=== PATIENT | female | born 1950 | race Caucasian/White ===

== ENCOUNTER 2025-07-25 10:33 | Outpatient (AMB) | payer OTHER, SELFPAY ==
--- NOTE | 2025-07-25 10:46 | A.OFFPC_ITS ---
Vital Signs 07/25/25 10:48 Height 5 ft 1.42 in Weight 178 lb 8 oz BMI 33.3 BP 134/64 Blood Pressure Location Rt brachial Position Sitting Respiration 14 Pulse 87 Pulse Source Pulse Oximeter Temp 98.1 F Temp Source Oral Pulse Oximetry (%) 98 Oxygen Delivery Method Room Air Intake Visit Reasons: Est. Care cholesterol, hypertension Intake Note: New patient visit Allergies No Known Allergies Allergy (Verified 07/25/25 10:49) Tobacco use date assessed: 07/25/25 Dental Screening Dental Screen Date: 07/25/25 Did you have a dental problem in the last 6 months where you did not have access to dental care?: No Was dental information given to patient?: Patient has dentist HPI HPI Comments History of Present Illness Details 75 year old hypertension, hyperlipidemia , osteoporosis, insomnia, obesi ty presenting to [facility] CV: On amlodipine, losartan, rosuvasatin. Blood pressure is well controlled. LE swelling intermittently, usually after salty foods. She has a history of heart murmur. No chest pain. BMI is 33.3. Difficulty losing weight. Would like to potentially try a GLP 1 agonist. BH: Insomnia. Goes to bed about 10 wakes up at 3 does not go back to sleep. Has tried ambien in the past. Only lasts 4 hours. Osteoporosis-DXA 2023. Eye exam and dental are up to date Mammo: 06/2025-Mammogram Colonoscopy: due in 2025-[facility] Tdap 01/2023 Pneumo 20 02/16/2023 ROS See HPI PHYSICAL EXAM: GENERAL: Alert and oriented x 3. NAD EYES: EOMI. Anicteric. HENT: Moist mucous membranes. No scleral icterus. No cervical lymphadenopathy. LUNGS: Clear to auscultation bilaterally. CARDIOVASCULAR: Regular rate and rhythm. soft systolic murmur. No JVD. ABDOMEN: Soft, non-tender +bs EXTREMITIES: Trace b/l edema. Non-tender. SKIN: No rashes or lesions. Warm. NEUROLOGIC: No focal neurological deficits. CN II-XII grossly intact PSYCHIATRIC: Cooperative. Appropriate mood and affect [facility] Surgical History H/O section Family History Father Alcoholism Mother HTN (hypertension) Diabetes Other Substance abuse Social History Alcohol intake: current Patient Tobacco Use Status: Former Tobacco user Cigarette Packs Per Day: 1 Years Smoked: 40 Questionnaire PHQ-9 Over the last 2 weeks, how often have you been bothered by any of the following problems? 1. Little interest or pleasure in doing things: not at all 2. Feeling down, depressed, or hopeless: not at all 3. Trouble falling or staying asleep, or sleeping too much: several days 4. Feeling tired or having little energy: not at all 5. Poor appetite or overeating: not at all 6. Feeling bad about yourself - or that you are a failure or have let yourself or your family down: not at all 7. Trouble concentrating on things, such as reading the newspaper or watching television: not at all 8. Moving or speaking so slowly that other people could have noticed. Or the opposite - being so fidgety or restless that you have been moving around a lot more than usual: not at all 9. Thoughts that you would be better off or of hurting yourself in some way: not at all Total score: 1 Depression Screening Interpretation: Negative Depression Screening Done: Yes 23656 - PHQ-9 Billing: Yes Source: Developed by Drs. Kishor Miller, Latonya Murphy, Frederick Sullivan and colleagues, with an educational juan r from [employer]. Thrive Questionnaire Date Thrive assessed: 07/25/25 I am a: Patient What is your living situation today?: I have a steady place to live Within the past 12 months, did the food you bought not last and you didn't have the money to get more?: Never true Within the past 12 months, did you worry whether your food would run out before you got money to buy more?: Never true Do you have trouble paying for medicines?: No Do you have trouble getting transportation to medical appointments?: No Do you have trouble paying your heating and electricity bill?: No Do you have trouble taking care of your child, family member or friend?: No Do you have trouble with day-to-day activities such as bathing, preparing meals, shopping, managing finances, etc.?: No Are you currently unemployed and looking for a job?: No Are you interested in more education?: No Please select the resources that you would like help with: None Currently or been in a relationship where the following occur: No concerns reported THRIVE Score: 0 AUDIT C Alcohol Use Questionnaire (AUDIT-C) 1. How often do you have a drink containing alcohol?: 2-3 times a week 2. How many drinks containing alcohol do you have on a typical day when you are drinking?: 1 or 2 3. How often do you have six or more drinks on one occasion?: Never Total Score: 3 ALEXX-7 AMB Questionnaire ALEXX-7 Date ALEXX - 7 assessed: 07/25/25 Feeling nervous, anxious, or on edge: 0 = Not at all Not being able to stop or control worryin = Not at all Worrying too much about different things: 0 = Not at all Trouble relaxin = Not at all Being so restless that it is hard to sit still: 0 = Not at all Becoming easily annoyed or irritable: 0 = Not at all Feeling afraid as if something awful might happen: 0 = Not at all Total ALEXX-7 score (0-4 normal; 5-9 mild; 10-14 moderate; 15-21 severe): 0 Source: Developed by Drs. Kishor Miller, Latonya Murphy, Frederick neal nd colleagues, with an educational juan r from [employer]. ALEXX-7 Assessment Billing ALEXX-7 Assessment Tool: ALEXX-7 Assessment 99958 Physical exam (Primary Care) Vital Signs: Last Vital Signs Temp 98.1 F 07/25/25 10:48 Pulse 87 07/25/25 10:48 Resp 14 07/25/25 10:48 BP 134/64 07/25/25 10:48 Pulse Ox 98 07/25/25 10:48 Oxygen Delivery Method Room Air 07/25/25 10:48 BMI result Body Mass Index 33.3 Tobacco/Smoking Status: Tobacco use Status Tobacco use date assessed 07/25/25 07/25/25 10:54 Patient Tobacco Use Status Former Tobacco user 07/25/25 10:54 PHQ-9: PHQ-9 Score PHQ-9: Total score 1 07/25/25 10:48 Depression Screening Interpretation: Negative Currently or been in a relationship where the following occur: No concerns reported Coding Level of Care Code Complex visit Add On G2211 Diagnoses Primary hypertension I10 Hypertension type: primary hypertension Hyperlipidemia, unspecified hyperlipidemia type E78.5 Hyperlipidemia type: unspecified Osteoporosis, unspecified osteoporosis type, unspecified pathological fracture presence M81.0 Osteoporosis type: unspecified Presence of current pathological fracture: unspecified Obesity (BMI 30.0-34.9) E66.811 Additional Codes ALEXX-7 Assessment Billing - ALEXX-7 Assessment Tool: ALEXX-7 Assessment 68149 ([id number]) PHQ-9 - 68189 - PHQ-9 Billing: Yes ([id number]) Assessment & Plan Assessment & Plan (1) Hypertension: Code(s): I10 - Essential (primary) hypertension Category: Medical Qualifiers: Hypertension type: primary hypertension Qualified Code(s): I10 - Essential (primary) hypertension (2) Hyperlipidemia: Code(s): E78.5 - Hyperlipidemia, unspecified Category: Medical Qualifiers: Hyperlipidemia type: unspecified Qualified Code(s): E78.5 - Hyperlipidemia, unspecified (3) Osteoporosis: Code(s): M81.0 - Age-related osteoporosis without current pathological fracture Category: Medical Qualifiers: Osteoporosis type: unspecified Presence of current pathological fracture: unspecified Qualified Code(s): M81.0 - Age-related osteoporosis without current pathological fracture (4) Obesity (BMI 30.0-34.9): Code(s): E66.811 - Obesity, class 1 Category: Medical Plan 75 year old to establish care Past medical, surgical, social reviewed CV: htn controlled. labs today. furosemide prn. echo if sob, worsening edema Obesity-GLP ordered. if not covered will use wegovy coupon Orders: Orders Complete Blood Count Auto Diff Today E78.5 - Hyperlipidemia, unspecified, I10 - Essential (primary) hypertension, K63.5 - Polyp of colon, M81.0 - Age-related osteoporosis without current pathological fracture, R35.89 - Other polyuria, R53.83 - Other fatigue, Z13.228 - Encounter for screening for other metabolic disorders Comprehensive Met. Panel Today E78.5 - Hyperlipidemia, unspecified, I10 - Essential (primary) hypertension, K63.5 - Polyp of colon, M81.0 - Age-related osteoporosis without current pathological fracture, R35.89 - Other polyuria, R53.83 - Other fatigue, Z13.228 - Encounter for screening for other metabolic disorders Lipid Panel Today E78.5 - Hyperlipidemia, unspecified, I10 - Essential (primary) hypertension, K63.5 - Polyp of colon, M81.0 - Age-related osteoporosis without current pathological fracture, R35.89 - Other polyuria, R53.83 - Other fatigue, Z13.228 - Encounter for screening for other metabolic disorders Vitamin B12 and Folate Today E78.5 - Hyperlipidemia, unspecified, I10 - Essential (primary) hypertension, K63.5 - Polyp of colon, M81.0 - Age-related osteoporosis without current pathological fracture, R35.89 - Other polyuria, R53.83 - Other fatigue, Z13.228 - Encounter for screening for other metabolic disorders TSH reflex Free T4 Today E78.5 - Hyperlipidemia, unspecified, I10 - Essential (primary) hypertension, K63.5 - Polyp of colon, M81.0 - Age-related osteoporosis without current pathological fracture, R35.89 - Other polyuria, R53.83 - Other fatigue, Z13.228 - Encounter for screening for other metabolic disorders Hemoglobin A1c Today E78.5 - Hyperlipidemia, unspecified, I10 - Essential (primary) hypertension, K63.5 - Polyp of colon, M81.0 - Age-related osteoporosis without current pathological fracture, R35.89 - Other polyuria, R53.83 - Other fatigue, Z13.228 - Encounter for screening for other metabolic disorders Vitamin D 1,25 dihydroxy Today E78.5 - Hyperlipidemia, unspecified, I10 - Essential (primary) hypertension, K63.5 - Polyp of colon, M81.0 - Age-related osteoporosis without current pathological fracture, R35.89 - Other polyuria, R53.83 - Other fatigue, Z13.228 - Encounter for screening for other metabolic disorders Medications: New trazodone 50 mg PO BEDTIME PRN 30 tabs 0RF sleep tirzepatide (weight loss) (Zepbound) for 4 weeks 2.5 mg (0.5 mL) subcut QWEEK 2 mL 3RF E66.811 - Obesity, class 1, E78.5 - Hyperlipidemia, unspecified, I10 - Essential (primary) hypertension furosemide (Lasix) 40 mg (2 x 20 mg) PO DAILY PRN 90 tabs 0RF leg swelling ondansetron HCl 4 mg PO Q8H PRN 30 tabs 0RF nausea and vomiting
[2025-07-25 10:48] VITALS: BP 134/64; PULSE 87; RESP 14; TEMP 36.7; O2SAT 98; BMI 33.3
== END 2025-07-25 11:22 | disposition home or self-care (01) ==
LOC: HO.HMCFM 10:34
PROVIDERS: PCP Internal Medicine; Visit Provider Internal Medicine
DX: I10 Essential (primary) hypertension (principal); E78.5 Hyperlipidemia, unspecified; E66.811 Obesity, class 1; Z68.30 Body mass index [BMI] 30.0-30.9, adult; M81.0 Age-related osteoporosis without current pathological fracture

== ENCOUNTER 2025-07-25 10:33 | Outpatient (REF) | payer MEDICARE, SELFPAY ==
[2025-07-25 14:16] LABS: MANUAL DIFF FLAG NO
[2025-07-25 14:22] LABS: Hematocrit 41.3 % (37.0-47.0); Hemoglobin 13.6 g/dl (12.0-16.0); Imm Gran Abs Auto 0.02 X10*3/uL (0.00-0.03); Imm Gran Pct Auto 0.2 % (0.0-0.4); Lymphocytes Absolute Auto 1.6 X10*3/uL (1.2-4.9); Mean Corpuscular HGB Conc 32.9 g/dl (31.0-35.0); Mean Corpuscular Hemoglobin 33.4 pg (27.0-33.0); Mean Corpuscular Volume 101.5 fL (80.0-98.0); NRBC Abs Auto 0.000 X10*3/uL (0.0-0.012); NRBC Pct Auto 0.0 /100WBC (0.0-0.2); Platelet Count 320 X10*3/uL (160-400); Red Blood Count 4.07 X10*6/uL (4.20-5.50); White Blood Count 9.8 X10*3/uL (4.8-10.8)
[2025-07-25 18:40] LABS: Alanine Aminotransferase 28 U/L (0-31); Albumin Level 4.8 g/dL (3.5-5.0); Alkaline Phosphatase 70 U/L (39-117); Anion Gap 11 (12-20); Aspartate Amino Transferase 38 U/L (5-31); Blood Urea Nitrogen 15 mg/dL (9-16); Calcium 9.5 mg/dL (8.4-10.2); Carbon Dioxide 24 mmol/L (22-29); Chloride 108 mmol/L (96-108); Cholesterol 186 mg/dL (<200); Estimated Glomerular Filt Rate > 60; HDL Cholesterol 105 mg/dL (>40); Potassium 4.0 mmol/L (3.3-5.1); Sodium 139 mmol/L (135-145); Total Protein 7.6 g/dL (6.5-8.0); Triglycerides 51 mg/dL (<150)
[2025-07-26 00:35] LABS: Folate 14.3 ng/mL (> or = 4.0); Vitamin B12 544 pg/mL (200-900)
[2025-07-31 04:18] LABS: VITAMIN D (1,25 OH) D3 65 pg/mL; Vit D (1,25-Dihydroxy) Total 65 pg/mL (18-72); Vitamin D (1,25 OH) D2 <8 pg/mL
== END 2025-07-25 10:34 | disposition home or self-care (01) ==
LOC: HO.WFDLDS 10:33
PROVIDERS: Visit Provider Internal Medicine
DX: Z13.228 Encounter for screening for other metabolic disorders (principal); I10 Essential (primary) hypertension; E78.5 Hyperlipidemia, unspecified; M81.0 Age-related osteoporosis without current pathological fracture; K63.5 Polyp of colon; R53.83 Other fatigue; R35.89 Other polyuria; F17.210 Nicotine dependence, cigarettes, uncomplicated; E66.811 Obesity, class 1; Z68.33 Body mass index [BMI] 33.0-33.9, adult
CPT/HCPCS: 36415; 80053; 80061; 82607; 82652; 82746; 83036; 84443; 85025; 96127; 99212